=== PATIENT | male | born 1955 | race Two or more races ===

== ENCOUNTER 2021-02-25 13:05 | Emergency (ER) | payer OTHER ==
[~2021-02-25] VITALS: Ht 177.8 cm; Wt 83.0 kg
[2021-02-25 13:09] VITALS: BP 140/70
[2021-02-25] MEDS ORDERED: ACETAMINOPHEN 325 MG TAB PO ONE (17:15)
== END 2021-02-25 17:26 | disposition home or self-care (01) ==
LOC: ER 13:05
DX: S20.211A Contusion of right front wall of thorax, initial encounter (principal); S80.11XA Contusion of right lower leg, initial encounter; E78.5 Hyperlipidemia, unspecified; Z86.73 Personal history of transient ischemic attack (TIA), and cerebral infarction without residual deficits; Z88.2 Allergy status to sulfonamides; W01.0XXA Fall on same level from slipping, tripping and stumbling without subsequent striking against object, initial encounter; Y93.89 Activity, other specified; Y92.89 Other specified places as the place of occurrence of the external cause; Y99.8 Other external cause status
CPT/HCPCS: 71250

== ENCOUNTER 2023-10-31 05:16 | Inpatient (IN) | payer MEDICARE, OTHER ==
[2023-10-31] VITALS (8 sets, daily range): BP systolic 108–119; BP diastolic 65–75; PULSE 54–64; RESP 16–20; TEMP 97.6–98; O2SAT 97–98
[~2023-10-31] VITALS: Ht 177.8 cm; Wt 86.6 kg
[2023-10-31] MEDS: MECLIZINE HCL 25 MG TAB PO ONE (07:01)
[2023-10-31 07:36] LABS: Basophils # (auto) 0 10 ^3/uL (0-0.2); Basophils % (auto) 0.5 % (0.0-2.0); Chloride 105 mmol/L (98-107); Eosinophils # (auto) 0.1 10 ^3/uL (0-0.8); Eosinophils % (auto) 1.5 % (0.0-7.0); Hematocrit 38.8 % (41.0-53.0); Hemoglobin 13.4 g/dL (13.5-17.5); Lymphocytes # (auto) 1.7 10 ^3/uL (0.4-5.4); Lymphocytes % (auto) 25.9 % (10.0-50.0); Mean Corpuscular Hemoglobin 31.7 pg (28.0-32.0); Mean Corpuscular Hgb Conc. 34.6 g/dL (32.0-36.0); Mean Corpuscular Volume 91.7 fL (80.0-100.0); Monocytes # (auto) 0.7 10 ^3/uL (0-1.3); Monocytes % (auto) 10.4 % (0.0-12.0); Neutrophils # (auto) 4.1 10 ^3/uL (1.6-8.6); Neutrophils % (auto) 61.7 % (37.0-80.0); Potassium 4.4 mmol/L (3.5-5.1); Red Blood Cells 4.23 10^6/uL (4.5-5.90); Red Cell Distribution Width 13.2 % (11.8-14.3); Sodium 139 mmol/L (136-145); White Blood Cell 6.6 10^3/uL (4.4-10.8)
[2023-10-31 07:37] LABS: Anion Gap 9 (5-15); Calcium 9.4 mg/dL (8.7-10.4); Carbon Dioxide 25 mmol/L (20-30)
[2023-10-31 07:42] LABS: BUN/Creatinine Ratio 18.6 (10.0-20.0); Blood Urea Nitrogen 13 mg/dL (9-23); Glucose 99 mg/dL (74-106)
[2023-10-31] MEDS ORDERED: HYDROcodone-ACET 5/325MG TAB PO PRN ×2 (10:45→22:15)
[2023-10-31] MEDS ORDERED: ACETAMINOPHEN 325 MG TAB PO PRN ×2 (10:45→22:15)
[2023-10-31] MEDS ORDERED: NITROGLYCERIN 0.4 MG SL TAB SL PRN ×2 (10:45→22:15)
[2023-10-31] MEDS ORDERED: MORPHINE SULFATE INJ 2 MG/ml SYRG IV PRN ×4 (10:45→22:15)
[2023-10-31] MEDS ORDERED: ONDANSETRON HCL 4 MG/2 ML VIAL IV PRN ×2 (10:45→22:15)
[2023-10-31 11:22] LABS: LDL Cholesterol 98 mg/dL (< 100); Triglycerides 157 mg/dL (< 150)
[2023-10-31 11:23] LABS: HDL Cholesterol 41 mg/dL (40-59)
[2023-10-31 11:24] LABS: Cholesterol 160 mg/dL (< 200)
[2023-10-31] MEDS ORDERED: FLUO-381 TOP (17:04)
[2023-10-31] MEDS ORDERED: ATOR20TA PO (17:04)
[2023-10-31] MEDS ORDERED: ATORVASTATIN 20 MG TAB PO SCH (22:00)
[2023-10-31] MEDS: ATORVASTATIN 20 MG TAB PO SCH (22:09)
[2023-11-01] VITALS (8 sets, daily range): BP systolic 96–143; BP diastolic 66–86; PULSE 58–91; RESP 16–20; TEMP 97.8–98.4; O2SAT 95–97
[2023-11-01 07:40] LABS: Basophils # (auto) 0 10 ^3/uL (0-0.2); Basophils % (auto) 0.5 % (0.0-2.0); Eosinophils # (auto) 0.1 10 ^3/uL (0-0.8); Eosinophils % (auto) 2.3 % (0.0-7.0); Hematocrit 40.4 % (41.0-53.0); Hemoglobin 13.9 g/dL (13.5-17.5); Lymphocytes % (auto) 33.4 % (10.0-50.0); Mean Corpuscular Hemoglobin 31.7 pg (28.0-32.0); Mean Corpuscular Hgb Conc. 34.3 g/dL (32.0-36.0); Mean Corpuscular Volume 92.3 fL (80.0-100.0); Monocytes # (auto) 0.6 10 ^3/uL (0-1.3); Monocytes % (auto) 10.2 % (0.0-12.0); Neutrophils # (auto) 3.2 10 ^3/uL (1.6-8.6); Neutrophils % (auto) 53.6 % (37.0-80.0); Nucleated Red Blood Cells % 0.1 %; Red Blood Cells 4.38 10^6/uL (4.5-5.90); Red Cell Distribution Width 13.1 % (11.8-14.3)
[2023-11-01 07:44] LABS: Alanine Aminotransferase 27 U/L (7-40); Albumin 3.7 g/dL (3.2-4.8); Alkaline Phosphatase 63 U/L (46-116); Anion Gap 6 (5-15); Aspartate Aminotransferase 26 U/L (13-40); BUN/Creatinine Ratio 12.3 (10.0-20.0); Blood Urea Nitrogen 9 mg/dL (9-23); Calcium 8.9 mg/dL (8.7-10.4); Carbon Dioxide 23 mmol/L (20-30); Chloride 108 mmol/L (98-107); Glucose 90 mg/dL (74-106); Potassium 4.3 mmol/L (3.5-5.1); Sodium 137 mmol/L (136-145); Total Protein 6.4 g/dL (5.7-8.2)
[2023-11-01 07:49] LABS: Bilirubin, Total 0.6 mg/dL (0.2-1.0)
[2023-11-02] VITALS (8 sets, daily range): BP systolic 108–117; BP diastolic 70–76; PULSE 55–78; RESP 17–20; TEMP 97.5–98.4; O2SAT 90–98
[2023-11-03] VITALS (8 sets, daily range): BP systolic 97–116; BP diastolic 64–79; PULSE 57–110; RESP 17–22; TEMP 97.8–99.2; O2SAT 94–100
[2023-11-03 06:32] LABS: Basophils # (auto) 0 10 ^3/uL (0-0.2); Basophils % (auto) 0.4 % (0.0-2.0); Eosinophils # (auto) 0.1 10 ^3/uL (0-0.8); Eosinophils % (auto) 1.9 % (0.0-7.0); Hematocrit 40.9 % (41.0-53.0); Hemoglobin 14.3 g/dL (13.5-17.5); Lymphocytes # (auto) 1.9 10 ^3/uL (0.4-5.4); Mean Corpuscular Hemoglobin 31.9 pg (28.0-32.0); Mean Corpuscular Hgb Conc. 34.9 g/dL (32.0-36.0); Mean Corpuscular Volume 91.2 fL (80.0-100.0); Monocytes # (auto) 0.8 10 ^3/uL (0-1.3); Monocytes % (auto) 11.4 % (0.0-12.0); Neutrophils % (auto) 58.3 % (37.0-80.0); Nucleated Red Blood Cells % 0.1 %; Red Blood Cells 4.48 10^6/uL (4.5-5.90); White Blood Cell 6.8 10^3/uL (4.4-10.8)
[2023-11-03 06:33] LABS: Calcium 9.6 mg/dL (8.7-10.4); Chloride 104 mmol/L (98-107); Potassium 4.5 mmol/L (3.5-5.1); Sodium 138 mmol/L (136-145)
[2023-11-03 06:34] LABS: Anion Gap 5 (5-15); Carbon Dioxide 29 mmol/L (20-30)
[2023-11-03 06:39] LABS: BUN/Creatinine Ratio 15.9 (10.0-20.0); Blood Urea Nitrogen 13 mg/dL (9-23); Glucose 95 mg/dL (74-106)
[2023-11-04 01:00] VITALS: BP_SYST 105; BP_SYST 124; BP_SYST 135; BP_DIAS 77; BP_DIAS 80; BP_DIAS 85; PULSE 61; PULSE 66; PULSE 74; RESP 20; RESP 22; TEMP 97.7; O2SAT 93; O2SAT 95; O2SAT 99
[2023-11-04 05:00] VITALS: BP 110/74; PULSE 58; RESP 20; TEMP 97.7; O2SAT 95
[2023-11-04 07:10] LABS: Basophils # (auto) 0 10 ^3/uL (0-0.2); Basophils % (auto) 0.4 % (0.0-2.0); Eosinophils # (auto) 0.1 10 ^3/uL (0-0.8); Eosinophils % (auto) 1.7 % (0.0-7.0); Hematocrit 41.7 % (41.0-53.0); Hemoglobin 14.4 g/dL (13.5-17.5); Lymphocytes % (auto) 27.7 % (10.0-50.0); Mean Corpuscular Hemoglobin 31.7 pg (28.0-32.0); Mean Corpuscular Hgb Conc. 34.5 g/dL (32.0-36.0); Monocytes # (auto) 0.8 10 ^3/uL (0-1.3); Monocytes % (auto) 11.1 % (0.0-12.0); Neutrophils # (auto) 4.4 10 ^3/uL (1.6-8.6); Neutrophils % (auto) 59.1 % (37.0-80.0); Nucleated Red Blood Cells % 0.1 %; Red Blood Cells 4.53 10^6/uL (4.5-5.90); Red Cell Distribution Width 13.2 % (11.8-14.3); White Blood Cell 7.4 10^3/uL (4.4-10.8)
[2023-11-04 07:28] LABS: Anion Gap 6 (5-15); Carbon Dioxide 29 mmol/L (20-30); Chloride 103 mmol/L (98-107); Potassium 4.3 mmol/L (3.5-5.1); Sodium 138 mmol/L (136-145)
[2023-11-04 07:30] LABS: Calcium 9.7 mg/dL (8.7-10.4)
[2023-11-04 07:35] LABS: BUN/Creatinine Ratio 15.6 (10.0-20.0); Blood Urea Nitrogen 12 mg/dL (9-23); Glucose 98 mg/dL (74-106)
[2023-11-04 08:00] VITALS: PULSE 68; O2SAT 97
[2023-11-04 08:45] VITALS: BP 124/79; PULSE 74; RESP 17; TEMP 98; O2SAT 97
[2023-11-04 11:57] VITALS: BP 122/75; PULSE 76; RESP 18; TEMP 98.1; O2SAT 97
[2023-11-04] MEDS ORDERED: ATOR20TA50 PO (12:13)
[2023-11-04 12:30] VITALS: BP 102/69; PULSE 63; RESP 17; TEMP 98.3; O2SAT 97
== END 2023-11-04 13:00 | disposition home or self-care (01) | DRG 312 ==
LOC: ER 05:16 → TELE 10:38 → TELE-WESTW 14:22 → WEST WING 11-02 20:21
PROVIDERS: ADMIT Internal Medicine Geriatric Medicine; ATTEND Internal Medicine Geriatric Medicine
DX: I95.1 Orthostatic hypotension (principal); I69.351 Hemiplegia and hemiparesis following cerebral infarction affecting right dominant side; I69.354 Hemiplegia and hemiparesis following cerebral infarction affecting left non-dominant side; E66.9 Obesity, unspecified; E78.5 Hyperlipidemia, unspecified; G93.89 Other specified disorders of brain; Z88.2 Allergy status to sulfonamides; Z68.27 Body mass index [BMI] 27.0-27.9, adult; I69.320 Aphasia following cerebral infarction; Z82.49 Family history of ischemic heart disease and other diseases of the circulatory system; Z79.899 Other long term (current) drug therapy
CPT/HCPCS: 36415; 70450; 70496; 80048; 80053; 80061; 82962; 83036; 84484; 85025; 93005; 93306; 93886; G0378

== ENCOUNTER 2025-02-01 14:53 | Emergency (ER) | payer MEDICARE, OTHER ==
[~2025-02-01] VITALS: Ht 172.7 cm; Wt 81.8 kg
[~2025-02-01 14:53] MED LIST: ATOR20TA PO; ATOR20TA50 PO; FLUO-381 TOP
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
[2025-02-01] MEDS ORDERED: IBUP-1455 PO (16:28)
[2025-02-01] MEDS ORDERED: HYDR-4902 PO (16:28)
[2025-02-01] MEDS: HYDROcodone-ACET 5/325MG TAB PO ONE (18:00)
[2025-02-01] MEDS: KETOROLAC TROMETH 60MG/2ML VIAL IM ONE (18:04)
[2025-02-01 18:25] VITALS: BP 144/78; PULSE 65; RESP 18; TEMP 98.2; O2SAT 98
== END 2025-02-01 18:31 | disposition home or self-care (01) ==
LOC: EDUNIT# 14:53 → EDBD 14:53 → ER 14:53
DX: S20.219A Contusion of unspecified front wall of thorax, initial encounter (principal); Z79.899 Other long term (current) drug therapy; Z86.73 Personal history of transient ischemic attack (TIA), and cerebral infarction without residual deficits; Z88.2 Allergy status to sulfonamides; Y08.89XA Assault by other specified means, initial encounter; Y93.89 Activity, other specified; Y92.89 Other specified places as the place of occurrence of the external cause; Y99.8 Other external cause status
CPT/HCPCS: 71111; 96372; 99283; J1885